=== PATIENT | male | born 1975 | race Caucasian/White ===

== ENCOUNTER 2020-10-30 16:38 | Emergency (ER) | payer SELFPAY ==
[~2020-10-30] VITALS: Ht 182.9 cm; Wt 80.0 kg
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
[2020-10-30] MEDS ORDERED: ACETAMINOPHEN 500 MG TABLET PO ONE (17:45)
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
[2020-10-30 18:21] VITALS: BP 127/80
== END 2020-10-30 18:30 | disposition home or self-care (01) ==
LOC: ER 16:38
DX: S13.4XXA Sprain of ligaments of cervical spine, initial encounter (principal); S00.93XA Contusion of unspecified part of head, initial encounter; Y08.89XA Assault by other specified means, initial encounter; Y93.89 Activity, other specified; Y92.89 Other specified places as the place of occurrence of the external cause; Y99.8 Other external cause status
CPT/HCPCS: 70450; 72125; 99285-25